=== PATIENT | female | born 1990 | race Caucasian/White ===

== ENCOUNTER 2020-03-30 18:01 | Emergency (ER) | payer OTHER ==
[~2020-03-30] VITALS: Ht 160 cm; Wt 116.6 kg
[~2020-03-30 18:01] MED LIST: BACTRIM DS 8001 TA1 PO; CELEXA20 MG PO; CIPROFLOXACIN500 MG PO; DESOGEN 0.15 MG1 TAB PO; PEN-VEE K500 MG PO
[2020-03-30 20:07] LABS: BILIRUBIN NEGATIVE (NEGATIVE); BLOOD NEGATIVE (NEGATIVE); CLARITY CLEAR (CLEAR); COLOR YELLOW (YELLOW); GLUCOSE NEGATIVE (NEGATIVE); KETONE 2+ (NEGATIVE); NITRITE NEGATIVE (NEGATIVE); SPECIFIC GRAVITY 1.015 (1.005-1.030); UROBILINOGEN 0.2 E.U./dl (0.2-1.0)
[2020-03-30 20:09] LABS: LEUKO ESTERASE TRACE (NEGATIVE)
[2020-03-30 20:14] LABS: BACTERIA 1+; MUCOUS 2+
== END 2020-03-30 22:30 | disposition short-term general hospital (02) ==
LOC: ED 18:01
PROVIDERS: Emergency Medicine
DX: O42.913 Preterm premature rupture of membranes, unspecified as to length of time between rupture and onset of labor, third trimester (principal); O99.613 Diseases of the digestive system complicating pregnancy, third trimester; O26.893 Other specified pregnancy related conditions, third trimester; K21.9 Gastro-esophageal reflux disease without esophagitis; F32.9 Major depressive disorder, single episode, unspecified; Z3A.28 28 weeks gestation of pregnancy